=== PATIENT | female | born 1965 | race Caucasian/White ===

== ENCOUNTER 2019-10-10 11:48 | Emergency (ER) | payer OTHER ==
[~2019-10-10] VITALS: Ht 162.6 cm; Wt 72.1 kg
[~2019-10-10 11:48] MED LIST: ASPIR 8181 MG; CODE1TAB37 PO; DOCUSATE SODIU100 MG PO; KETO10TA2 PO; MACRODANTIN100 M1 PO; Mylicon 125MG PO; SYMBICORT 16010.2 GM
[2019-10-10] MEDS ORDERED: LIPITOR40 MG PO (12:32)
== END 2019-10-10 13:34 | disposition home or self-care (01) ==
LOC: ER 11:48
DX: M54.5 Low back pain (principal)